=== PATIENT | male | born 1980 | race Caucasian/White ===

== ENCOUNTER 2024-06-17 20:04 | Emergency (ER) | payer BC, SELFPAY ==
[2024-06-17 20:27] VITALS: BP 145/98; PULSE 65; RESP 20; TEMP 36.8; O2SAT 97; BMI 34.0
--- NOTE | 2024-06-17 20:34 | ED_ITS ---
HPI - General Adult General Date Seen: 06/17/24 Chief complaint: Laceration/Wound Stated complaint: head laceration Time Seen by Provider: 06/17/24 20:23 Source: patient Mode of arrival: ambulatory Limitations: no limitations History of Present Illness HPI narrative: Patient is a 43-year-old male who presents for evaluation of scalp laceration. He was working in the [employer], he says he was moving a shelf and a metal tool of some sort fell on the top of his head giving him a laceration. He denies loss of consciousness, no severe headache, vomiting, confusion etcetera. Tetanus is up-to-date. Bleeding controlled. Related Data Home Medications ?Medication ?Instructions ?Recorded ?Confirmed levalbuterol tartrate 45 1 - 2 puff inhalation Q4H PRN 06/17/24 06/17/24 mcg/actuation aerosol inhaler dyspnea Allergies Allergy/AdvReac Type Severity Reaction Status Date / Time No Known Drug Allergies Allergy Verified 06/17/24 20:28 Exam Narrative: Exam Narrative: Vital signs reviewed In general, alert, well-appearing male. Head: Normocephalic. He has a about a 1 cm linear laceration on the top of his skull, bleeding is controlled. No surrounding hematoma, no palpable defect. Eyes: Pupils are equal and reactive. ENT: No facial trauma. Neck: Nontender palpation. Neurologic: He is alert, conversant, ambulatory without difficulty. Const: Vital Signs, click to edit/add: Vital Signs - 24 hr 06/17/24 20:27 Temperature 98.2 F Pulse Rate [Right Pulse Oximeter] 65 Respiratory Rate 20 Blood Pressure [Ri ght Upper Arm] 145/98 H Pulse Oximetry 97 Oxygen Delivery Me thod Room Air Documenting provider has reviewed patient's vital signs: yes Course Course ED Course: Procedure note: Wound was cleaned and then closed using Dermabond and hair apposition technique. He tolerated this well without immediate complication. Wound care discussed, return for signs of infection such as increasing swelling or pain. We also discussed reasons to return in terms of head injury such as severe headache, vomiting, confusion etcetera. He is eager to discharge. Vital Signs Vital signs: Initial Vital Signs Temperature 98.2 F 06/17/24 20:27 Temperature Source Temporal Artery Scan 06/17/24 20:27 Pulse Rate 65 06/17/24 20:27 Respiratory Rate 20 09/10/24 20:27 Blood Pressure 145/98 H 06/17/24 20:27 Blood Pressure Mean 113 H 06/17/24 20:27 Blood Pressure Position Sitting 06/17/24 20:27 Pulse Oximetry 97 06/17/24 20:27 Oxygen Delivery Method Room Air 06/17/24 20:27 Vital Signs Temperature 98.2 F 06/17/24 20:27 Pulse Rate 65 06/17/24 20:27 Respiratory Rate 20 06/17/24 20:27 Blood Pressure 145/98 H 06/17/24 20:27 Pulse Oximetry 97 06/17/24 20:27 Oxygen Delivery Method Room Air 06/17/24 20:27 Temperature 98.2 F 06/17/24 20:27 Pulse Rate 65 06/17/24 20:27 Respiratory Rate 20 06/17/24 20:27 Blood Pressure 145/98 H 06/17/24 20:27 Pulse Oximetry 97 06/17/24 20:27 Oxygen Delivery Method Room Air 06/17/24 20:27 Discharge Plan Discharge Clinical Impression: Laceration of scalp Patient Disposition: Home, Self-Care Condition: Improved Instructions: Laceration (ED), Skin Adhesive Care (ED) Additional Instructions: Okay to shower, avoid ointments on the wound while it is healing as this can loosen the glue. Ibuprofen or Tylenol if needed. For severe headache, increasing pain, fevers, vomiting confusion etcetera return at any time for re- evaluation. Otherwise, glue will slough off in the next couple of weeks. Acetone nail Arabic remover and antibiotic ointment left on for 30 minutes or so will both soften the glue if you need to remove it before that. Prescriptions: No Action levalbuterol tartrate 45 mcg/actuation HFA aerosol inhaler 1 - 2 puff INHALATION Q4H PRN (Reason: dyspnea) Stand Alone Forms: [facility] Info Instructions
== END 2024-06-17 20:51 | disposition home or self-care (01) ==
LOC: ED 20:40
PROVIDERS: Emergency Provider Emergency Medicine
DX: S01.01XA Laceration without foreign body of scalp, initial encounter (principal); W20.8XXA Other cause of strike by thrown, projected or falling object, initial encounter; Y92.59 Other trade areas as the place of occurrence of the external cause
CPT/HCPCS: 12001; 99282; 99284